=== PATIENT | male | born 1955 | race Caucasian/White ===

== ENCOUNTER 2022-01-28 08:51 | Emergency (ER) | payer OTHER ==
[~2022-01-28] VITALS: Ht 185.4 cm; Wt 109.1 kg
[2022-01-28 10:58] VITALS: BP 142/78
== END 2022-01-28 10:59 | disposition home or self-care (01) ==
LOC: ED 08:51
DX: S01.81XA Laceration without foreign body of other part of head, initial encounter (principal); W22.8XXA Striking against or struck by other objects, initial encounter; Y92.59 Other trade areas as the place of occurrence of the external cause; Y99.0 Civilian activity done for income or pay
CPT/HCPCS: 90714